=== PATIENT | female | born 1985 | race Caucasian/White ===

== ENCOUNTER 2016-09-13 15:02 | Day surgery (SDC) | payer SELFPAY ==
[~2016-09-13] VITALS: Ht 172.7 cm; Wt 120.9 kg
[2016-09-13] MEDS ORDERED: ADVIL200 MG PO (15:39)
[2016-09-13 15:55] VITALS: BP 117/89; PULSE 86; TEMP 98.4
[2016-09-13 16:50] VITALS: BP 122/71; PULSE 87; TEMP 98.3
[2016-09-13 17:00] VITALS: BP 114/67; PULSE 78
[2016-09-13 17:15] VITALS: BP 115/63; PULSE 78
[2016-09-13] MEDS ORDERED: PRILOSEC 20MG20 MG PO (17:24)
== END 2016-09-13 17:50 | disposition home or self-care (01) ==
LOC: SDCO 15:02
DX: K20.9 Esophagitis, unspecified (principal); K21.0 Gastro-esophageal reflux disease with esophagitis; R13.12 Dysphagia, oropharyngeal phase
CPT/HCPCS: OP; J2250; J2405; J3010; J7030

== ENCOUNTER 2018-09-29 06:49 | Day surgery (SDC) | payer SELFPAY ==
[~2018-09-29] VITALS: Ht 172.7 cm; Wt 125.1 kg
[~2018-09-29 06:49] MED LIST: ADVIL200 MG PO; PRILOSEC 20MG20 MG PO
[2018-09-29 07:10] VITALS: BP 142/92; PULSE 82; TEMP 98.5
[2018-09-29] MEDS ORDERED: SPRINTEC 35 MCG1 TAB PO (07:15)
[2018-09-29] MEDS ORDERED: IFEREX 150150 MG PO (07:15)
[2018-09-29 08:45] VITALS: BP 124/74; PULSE 82; TEMP 98.3
--- NOTE | 2018-09-29 08:45 | NUR ---
The patient arrived back to [place] [facility] at this time. The patient appears alert and oriented and denies any pain or nausea at this time. The patient ambulated from the cart to the recliner in her room with the stand by assistance of two nurses and appeared to tolerate the activity well. The patient requests to try some water at this time. The patient's post procedure vital signs were started at this time. The patient's friend is present at her bedside. Call light is within reach. Will continue to monitor the patient.
[2018-09-29 09:00] VITALS: BP 132/88; PULSE 74
--- NOTE | 2018-09-29 09:00 | NUR ---
Dr. Randall is at the patient's bedside discussing the results of the procedure with her and her friend at this time. The patient appeared to tolerate the water well and voices a desire to be discharged homel.
--- NOTE | 2018-09-29 09:10 | NUR ---
Discharge instructions were reviewed with the patient and her friend at this time. They both verbalized understanding and have no questions for the nurse at this time. The patient's IV to her right hand was removed and a pressure dressing was applied to the site. The nurse instructed the patient to get dressed while her friend pulls the car up to the patient entrance.
--- NOTE | 2018-09-29 09:15 | NUR ---
The patient was escorted out via ambulation to a private vehicle by TATO Walton. The patient's belongings and discharge paperwork were sent with her. The patietn's friend, Sherine, is present to drive her home.
[2018-09-29 12:53] VITALS: BP 142/82; PULSE 84
== END 2018-09-29 09:15 | disposition home or self-care (01) ==
LOC: SDCO 06:49
DX: K21.9 Gastro-esophageal reflux disease without esophagitis (principal); K22.70 Barrett's esophagus without dysplasia; Z88.1 Allergy status to other antibiotic agents; D50.9 Iron deficiency anemia, unspecified; R19.7 Diarrhea, unspecified; E66.01 Morbid (severe) obesity due to excess calories; Z68.41 Body mass index [BMI] 40.0-44.9, adult
CPT/HCPCS: J2250; J2405; J3010; J7030

== ENCOUNTER 2023-12-02 06:18 | Day surgery (SDC) | payer BC ==
[~2023-12-02] VITALS: Ht 172.7 cm; Wt 133.2 kg
[~2023-12-02 06:18] MED LIST changes: +IFEREX 150150 MG PO; +LR 1,000 ML IV SCH; +NORCO 325 MG-51 TAB PO; +Ondansetron 4 MG/2 ML VIAL IV PRN; +PRIL40 PO; -PRILOSEC 20MG20 MG PO; +SPRINTEC 35 MCG1 TAB PO
[2023-12-02 06:31] VITALS: BP 144/93; PULSE 70; TEMP 97.4
--- NOTE | 2023-12-02 06:50 | NUR ---
The patient ambulated back to [place] [facility] independently using a steady gait and appeared to tolerate the activity well. Vital signs obtained. Consent signed. 20G IV started in right hand with one stick, LR infusing without difficulty. Assessment completed. Home medications reconcilled. Warm blanket provided. , Giovanny, brought back to be at her bedside. The patient denies any further needs at this time.
[2023-12-02] MEDS ORDERED: Lidocaine PF 2% (20 MG/ML) 5 ML VIAL ONE (08:16)
[2023-12-02 08:50] VITALS: BP 144/86; PULSE 73
[2023-12-02 09:00] VITALS: BP 135/87; PULSE 70
--- NOTE | 2023-12-02 13:55 | NUR ---
0850- PT BACK FROM PROCEDURE TO [facility] VIA CART. PT AMBULATED FROM CART TO CHAIR WITH ASSISTANCE. MONITORS ON AND ALARMS SET. REPORT RECIEVED FROM TATO CAST. PT ALERT AND ORIENTED. PT AT CHAIRSIDE. CALL LIGHT WITHIN REACH. PT REQUESTING DRINK. NO OTHER NEEDS AT THIS TIME. 0900- PT TAKING DRINK WELL. NO COMPLICATIONS NOTED. 0920- DISCHARGE INSTRUCTIONS GIVEN TO PT. ALL QUESTIONS ANSWERED. 0935- PT TRANSFERRED OUT OF HOSPITAL VIA WHEELCHAIR TAKEN DOWN BY NURSES AID TO PT'S PRIVATE VEHICLE DRIVEN BY .
== END 2023-12-02 08:35 | disposition home or self-care (01) ==
LOC: SDCO 06:18
DX: K21.00 Gastro-esophageal reflux disease with esophagitis, without bleeding (principal); K44.9 Diaphragmatic hernia without obstruction or gangrene; K22.70 Barrett's esophagus without dysplasia; K22.2 Esophageal obstruction; E66.9 Obesity, unspecified; Z85.828 Personal history of other malignant neoplasm of skin
CPT/HCPCS: J2704; J7120